=== PATIENT | female | born 1965 | race Caucasian/White ===

== ENCOUNTER 2016-08-12 06:53 | Emergency (ER) | payer OTHER ==
[~2016-08-12] VITALS: Ht 152.4 cm; Wt 79.4 kg
[~2016-08-12 06:53] MED LIST: ALEVE220 MG PO; ASPIRIN325 MG PO; BETHANECHOL CHL10 MG PO; BUPROPION XL150 MG; BUPROPION XL150 MG PO; BUPROPION XL300 MG; BUPROPION XL300 MG PO; CYTOTEC200 MCG PO; DEBLITANE0.35 MG PO; DIOVAN HCT 31 TABLE1 PO; GABAPENTIN800 MG; GABAPENTIN800 MG PO; LEVOTHYROXINE25 MCG; LEVOTHYROXINE25 MCG PO; LIPITOR10 MG PO; NAFCIL IV; OMEPRAZOLE20 MG PO; PERCOCET 5/31 TABLET PO; PRISTIQ50 MG; PRISTIQ50 MG PO; Percocet 5/325,Endoc PO; RANITIDINE HCL150 MG PO; SAVELLA25 MG PO; SYNTHROID50 MCG PO; TRAZODONE HCL50 MG; TRAZODONE HCL50 MG PO; TUMERIC PO; VALSARTAN-HCTZ1 EAC3; VICODIN,LORT1 TABLET PO; VITAMIN D-32000 UNI2 PO; VITAMIN D2000 UNIT PO
[2016-08-12 08:09] LABS: HEMATOCRIT 36.3 % (36.0-46.0); MCH 31.4 PG (29.0-34.0); MCHC 34.7 G/DL (30.0-36.0); MCV 90.5 FL (83-99); MEAN PLAT.VOLUME 10.7 uM^3 (9.5-12.4); PLATELET COUNT 241 K/uL (156-360); RBC DIS.WIDTH-CV 13.2 % (11.8-14.6); RED BLOOD COUNT 4.01 M/uL (3.80-5.20); WHITE BLOOD COUNT 4.2 K/uL (4.1-10.2)
[2016-08-12 08:24] LABS: ANION GAP 8 MEQ/L (2-14); CHLORIDE 104 MEQ/L (99-109); POTASSIUM 3.8 MEQ/L (3.7-5.4); SAMPLE HEMOLYSIS CHECK 0; SAMPLE ICTERIC CHECK 0; SAMPLE LIPEMIA CHECK 0; SODIUM 138 MEQ/L (136-147); TOTAL BILIRUBIN 0.6 MG/DL (0.0-1.0)
[2016-08-12 08:30] LABS: ALKALINE PHOSPHATASE 51 IU/L (3-129); GFR ESTIMATE (CALCULATED) > 59 mL/min/; GLUCOSE 106 mg/dL (70-99); LIPASE 15 U/L (1.0-51.0); UREA NITROGEN (BUN) 10 mg/dL (9-23)
[2016-08-12 09:16] LABS: BILIRUBIN NEGATIVE; BLOOD NEGATIVE; COLOR YELLOW ((YELLOW)); GLUCOSE (STRIP) NEGATIVE; KETONES NEGATIVE; LEUKOCYTES NEGATIVE; NITRITE NEGATIVE; PROTEIN (STRIP) NEGATIVE; SPECIFIC GRAVITY 1.006 (1.000-1.030); UROBILINOGEN 0.2 MG/DL (0.2-1.0)
[2016-08-12 09:22] LABS: ADD MIUA? NO
[2016-08-12 11:01] VITALS: BP 103/64
== END 2016-08-12 11:02 | disposition home or self-care (01) ==
LOC: EME 06:53
PROVIDERS: Nurse Practitioner Family
DX: K62.5 Hemorrhage of anus and rectum (principal); Z80.0 Family history of malignant neoplasm of digestive organs; I10 Essential (primary) hypertension; Z87.442 Personal history of urinary calculi; E03.9 Hypothyroidism, unspecified
CPT/HCPCS: 74177; 80053; 81003; 83690; 85027; 99281; 99283; J7030

== ENCOUNTER → 2016-09-02 | Outpatient (CLI) | payer OTHER ==
[~2016-09-02] VITALS: Ht 152.4 cm; Wt 78.9 kg
[~2016-09-02] MED LIST changes: +DESYREL100 MG PO; +PRISTIQ ER25 MG PO
== END | disposition home or self-care (01) ==
LOC: AMB 08:29
PROC: 0WJP8ZZ Inspection of Gastrointestinal Tract, Via Natural or Artificial Opening Endoscopic Approach (ICD-10-PCS; principal; 2016-09-02)
DX: Z12.11 Encounter for screening for malignant neoplasm of colon (principal); K92.1 Melena; I10 Essential (primary) hypertension; E78.2 Mixed hyperlipidemia; E03.9 Hypothyroidism, unspecified; Z68.34 Body mass index [BMI] 34.0-34.9, adult; Z79.82 Long term (current) use of aspirin; Z82.49 Family history of ischemic heart disease and other diseases of the circulatory system; Z83.49 Family history of other endocrine, nutritional and metabolic diseases
CPT/HCPCS: 93005; J2250

== ENCOUNTER 2016-11-30 05:38 | Day surgery (SDC) | payer OTHER ==
[~2016-11-30] VITALS: Ht 152.4 cm; Wt 97.7 kg
[2016-11-30] VITALS (7 sets, daily range): BP systolic 92–108; BP diastolic 53–67
[~2016-11-30 05:38] MED LIST changes: +LITE COAT ASPI325 M1 PO; +PEPCID20 MG PO; +SUPER B-50 COM1 EACH PO; +TURMERIC500 M1 PO
[2016-12-01 03:29] VITALS: BP 91/52
[2016-12-01 05:19] VITALS: BP 97/53
[2016-12-01 07:27] LABS: EOSINOPHIL COUNT 0.1 K/uL (0-0.3); IMMATURE GRANULOCYTE (%) 0.3 % (0.0-0.7); INSTRUMENT ABS NEUTROPHIL CT 4.2 K/uL; LYMPHOCYTE COUNT 1.2 K/uL (1.0-2.8); MCH 32.1 PG (29.0-34.0); MCHC 33.5 G/DL (30.0-36.0); MCV 95.7 FL (83-99); MEAN PLAT.VOLUME 10.7 uM^3 (9.5-12.4); MONOCYTE (%) 7.8 % (3-12); MONOCYTE COUNT 0.5 K/uL (0-0.8); NEUTROPHIL (%) 70.2 % (45-76); NEUTROPHIL COUNT 4.2 K/uL (1.8-6.4); PLATELET COUNT 194 K/uL (156-360); RBC DIS.WIDTH-CV 13.2 % (11.8-14.6); RBC DIS.WIDTH-SD 45.3 % (39-53); RED BLOOD COUNT 3.24 M/uL (3.80-5.20)
[2016-12-01 08:01] LABS: ANION GAP 6 MEQ/L (2-14); CHLORIDE 101 MEQ/L (99-109); GFR ESTIMATE (CALCULATED) > 59 mL/min/; GLUCOSE 98 mg/dL (70-99); SAMPLE HEMOLYSIS CHECK 0; SAMPLE ICTERIC CHECK 0; SAMPLE LIPEMIA CHECK 0; SODIUM 134 MEQ/L (136-147); UREA NITROGEN (BUN) 9 mg/dL (9-23)
[2016-12-01 08:04] LABS: POTASSIUM 3.3 MEQ/L (3.7-5.4)
[2016-12-01 08:21] VITALS: BP 104/63
== END 2016-12-01 09:18 | disposition home or self-care (01) ==
LOC: SDC 05:38 → 2SOUTH 10:10 → 2EAST 10:10 → SDC 14:42 → 2EAST 16:05
PROVIDERS: Obstetrics & Gynecology Gynecology
DX: D25.0 Submucous leiomyoma of uterus (principal); N80.9 Endometriosis, unspecified; N73.6 Female pelvic peritoneal adhesions (postinfective); N94.6 Dysmenorrhea, unspecified; E66.9 Obesity, unspecified; Z68.43 Body mass index [BMI] 50.0-59.9, adult; E03.9 Hypothyroidism, unspecified; Z82.49 Family history of ischemic heart disease and other diseases of the circulatory system
CPT/HCPCS: 80048; 85025; 87086; 88307; G0378; J0131; J0330; J0690; J1100; J1170; J1644; J1885; J2250; J2270; J2405; J2710; J2765; J3010; J7120